=== PATIENT | male | born 1960 | race Caucasian/White ===

== ENCOUNTER → 2016-11-27 | Day surgery (SDC) | payer BC ==
[~2016-11-27] MED LIST: CHOLESTEROL MA600 MG PO; COZAAR PO; FISH OIL 1,0001 CAP PO; FLAX SEED OIL1000 MG PO; LIPITOR PO; PROSCAR5 MG PO; VITAMIN C PO; ZANTAC PO; ZOCOR PO
--- NOTE | ~2016-11-27 | OR ---
Unit #: [id number] #: [id number] Patient: GERMÁN BOND [id number] [address] [address] [id number] MR#: [id number] NAME: GERMÁN BOND ROOM: Date of Procedure: 11/27/2016 Admission Date: 11/27/2016 Surgeon: Romeo Horne III, M.D. : 1960 Attending Physician: Romeo Horne III, M.D. Primary Care Physician: Mary Reynolds A.P.R.N. OPERATIVE REPORT PREOPERATIVE DIAGNOSIS Family history of colon cancer. POSTOPERATIVE DIAGNOSIS Mild sigmoid diverticulosis. PROCEDURE PERFORMED Colonoscopy to cecum. ANESTHESIA MAC. SPECIMENS None. COMPLICATIONS None apparent. INDICATIONS FOR PROCEDURE This is a 56-year-old gentleman, whose mom from colon cancer. He is here today for surveillance. DESCRIPTION OF PROCEDURE After consent was obtained, the patient was brought to the endoscopy suite and placed in the left lateral decubitus position. We titrated the above sedation and I performed a rectal exam and did not feel any masses. The scope was placed within the rectal vault. Air was insufflated and I navigated the scope all the way to the cecum without any difficulty. He had normal mucosa. No evidence of any polyps or masses and he did have some mild sigmoid diverticulosis. The scope was retroflexed within the rectum. No other masses were seen. The scope was then carefully withdrawn. The patient tolerated the procedure without any problems and returned to recovery room in stable condition. Dictated by... Romeo Horne III, M.D. VCL/odalys TD: 11/28/2016 07:38 JOB #: [id number] Unit #: [id number] #: [id number] Patient: GERMÁN BOND CC: Mary Reynolds A.P.R.N. OPERATIVE REPORT Page 1 of 1 X Romeo Horne III, MD PROCEDURE OPERATIVE NOTE
== END | disposition home or self-care (01) ==
LOC: COPS 10:02
DX: Z12.11 Encounter for screening for malignant neoplasm of colon (principal); K57.30 Diverticulosis of large intestine without perforation or abscess without bleeding; K21.9 Gastro-esophageal reflux disease without esophagitis; R01.1 Cardiac murmur, unspecified; E78.00 Pure hypercholesterolemia, unspecified; Z80.0 Family history of malignant neoplasm of digestive organs
CPT/HCPCS: J2250